=== PATIENT | male | born 1965 | race African-American/Black ===

== ENCOUNTER 2019-03-23 06:36 | Day surgery (SDC) | payer OTHER ==
[2019-03-19 15:42] VITALS: BMI 29.9
[2019-03-23] MEDS ORDERED: HEPARIN NA (PORCINE) 5,000 UNITS/ML 1ML VIAL SQ ONE (07:28)
[2019-03-23] MEDS ORDERED: CEFAZOLIN 2 GM/D5W 2 GM/50 ML ML IVPB ONE (07:28)
[2019-03-23] MEDS ORDERED: ceFAZolin SODIUM 1 GM VIAL ONE (07:50)
[2019-03-23] MEDS ORDERED: BUPIVACAINE HCL/PF 0.25% (2.5MG/ML) 10 ML VIAL ONE (07:54)
[2019-03-23] MEDS ORDERED: HEPARIN NA (PORCINE) 5,000 UNITS/ML 1ML VIAL ONE (07:55)
[2019-03-23] MEDS ORDERED: MIDAZOLAM HCL 2 MG/2 ML SINGLE DOSE VIAL ONE ×2 (07:56)
[2019-03-23] MEDS ORDERED: ROCURONIUM BROMIDE 50 MG/5 ML VIAL ONE ×5 (07:57→12:14)
[2019-03-23] MEDS ORDERED: PROPOFOL 20 ML ONE (07:57)
[2019-03-23] MEDS ORDERED: fentaNYL CITRATE 250 MCG/5 ML VIAL ONE (07:57)
--- NOTE | 2019-03-23 08:13 | HP ---
History & Physical Update - History History: No Change - Physical Physical: No Change - Assessment Assessment: No Change - Plan Plan: No Change (no changes since pre-op visit)
[2019-03-23] MEDS ORDERED: ceFAZolin SODIUM 1 GM VIAL IVPB ONE (08:32)
[2019-03-23] MEDS ORDERED: BUPIVACAINE HCL/PF 0.25% (2.5MG/ML) 10 ML VIAL IJ ONE ×2 (09:24→12:45)
[2019-03-23] MEDS ORDERED: NEOSTIGMINE METHYLSULFATE 0.5 MG/ML - 10 ML MDV ONE (12:40)
[2019-03-23] MEDS ORDERED: DEXAMETHASONE SOD PHOSPHATE 4 MG/1 ML VIAL ONE (12:41)
[2019-03-23] MEDS ORDERED: LIDOCAINE HCL/PF 2% SDV 5ML VIAL ONE (12:41)
[2019-03-23] MEDS ORDERED: GLYCOPYRROLATE 0.2 MG/1 ML VIAL ONE (12:41)
[2019-03-23] MEDS ORDERED: ONDANSETRON 4 MG/2 ML VIAL IVPB PRN (13:16)
[2019-03-23] MEDS ORDERED: ACETAMINOPHEN 500 MG TABLET (FP) PO PRN (13:16)
[2019-03-23] MEDS ORDERED: OXYBUTYNIN CHLORIDE 5 MG TABLET PO PRN (13:16)
[2019-03-23] MEDS ORDERED: ACETAMINOPHEN 1000 MG/100 ML VIAL (NON FORMULARY) IVPB PRN (13:16)
[2019-03-23] MEDS ORDERED: diphenhydrAMINE HCL 50 MG CAPSULE PO PRN (13:16)
[2019-03-23] MEDS ORDERED: ONDANSETRON 4 MG/2 ML VIAL IVPUSH PRN (13:21)
[2019-03-23] MEDS ORDERED: SODIUM CHLORIDE 1,000 ML IV SCH (13:30)
--- NOTE | 2019-03-23 13:40 | OP ---
Operative Note - Note: Operative Date: 03/23/19 Pre-Operative Diagnosis: prostate Cancer Operation: Robotic assisted laparoscopic prostatectomy with pelvic lymph node dissection Post-Operative Diagnosis: Same as Pre-op Surgeon: Jr Tirado Tow Bar Driver: Radha Gaines Anesthesiologist/HAND STAMPER: Sumi Seth MD Anesthesia: General Specimens Removed: prostate. seminal vessicles. pelvic lymph nodes Estimated Blood Loss (mls): 200 Fluid Volume Replaced (mls): 3,000 Operative Report Dictated: Yes
--- NOTE | 2019-03-23 13:44 | SURG ---
Surgery Licensed Tax Consultant Note Licensed Tax Consultant: Radha Gaines PA-C Date of Service: 03/23/19 Diagnosis: prostate cancer Procedure: Robotic assisted laparoscopic prostatectomy with pelvic lymph node dissection I was present for the entirety of the operative procedure. For further detail, please refer to operative report. Visit type - Case Type Case Type: Scheduled - Emergency Emergency Visit: No - New patient This patient is new to me today: Yes Date on this admission: 03/23/19
[2019-03-23] MEDS ORDERED: ACETAMINOPHEN INJECTION 100 ML IVPB ONE (13:59)
[2019-03-23] MEDS: LACTATED RINGERS SOLUTION 1,000 ML IV SCH ×3 (17:22→22:10)
[2019-03-23] MEDS: KETOROLAC TROMETHAMINE 10 MG TABLET PO SCH (18:01)
[2019-03-23] MEDS: DOCUSATE SODIUM 100 MG CAPSULE (FP) PO SCH (21:19)
[2019-03-24] MEDS: KETOROLAC TROMETHAMINE 10 MG TABLET PO SCH ×2 (00:17→06:09)
[2019-03-24 06:45] VITALS: BP 145/90; PULSE 89; TEMP 99.1
[2019-03-24 07:22] LABS: HEMATOCRIT 38.9 % (35.4-49); MCHC 33.4 g/dl (32.0-35.9); MEAN CELL VOLUME 86.7 fl (80-96); MEAN PLT VOLUME 8.8 fl (7.5-11.1); PLATELET COUNT 221 K/MM3 (134-434); RBC 4.49 M/mm3 (4.00-5.60); RDW 14.1 % (11.9-15.9)
--- NOTE | 2019-03-24 07:25 | OP ---
DATE OF OPERATION: 03/23/2019 PREOPERATIVE DIAGNOSIS: Prostate cancer. POSTOPERATIVE DIAGNOSIS: Prostate cancer. PROCEDURE PERFORMED: Robotic assisted laparoscopic radical prostatectomy and bilateral pelvic lymph node dissection, under general anesthesia. SURGEON: Jr Tirado MD DESCRIPTION OF PROCEDURE: The patient was brought to the operating room. A time-out was called. All pressure points were padded. He was prepped and draped in the usual fashion for robotic radical prostatectomy. A Castro catheter was placed in the bladder. Initial pneumoperitoneum was obtained using a Veress needle. Subsequently, an 8-mm port was placed and the robotic camera was used and the abdomen was explored. No bowel injuries were identified. Three 8-mm ports and one 12-mm nursing home assistant administrator port were placed under vision. The robot was brought to the patient's bedside and docked. We identified a few intra-abdominal adhesions, which were taken down sharply. We also identified a left inguinal hernia, which was reduced using blunt dissection. We identified a right sliding hernia, which was reduced using blunt dissection. The bladder was dropped from the anterior attachment to the abdominal wall. The prostate was then defatted and this fat was sent for pathological examination. The endopelvic fascia was opened on both sides. The superficial veins were cauterized, and a DVC stitch of 0 PDS was placed. The anterior bladder neck was then incised and the dissection proceeded towards the posterior bladder neck up to the vas deferens and seminal vesicles. A frozen section from the bladder neck was taken and returned negative for carcinoma. The rectoprostatic fascia was incised and the dissection was carried distally towards the apex. At that point a bilateral nerve-sparing procedure was performed, and dissection was pursued laterally up to the apex. On the right, an intrafascial nerve-sparing procedure was performed. On the left, an intrafascial nerve-sparing procedure was performed. The prostatic vascular pedicles were then controlled bilaterally using Weck clips, bilaterally. The DVC was then divided and the urethra was transected using cold scissors. Following complete urethral transection, the prostate was then mobilized and freed from its posterior attachments and placed in the right upper quadrant. The prostatic basin was then irrigated with saline. The bedside nursing home assistant administrator placed a finger in the rectum and no rectal injury was observed, with no visible blood noted on the surgical clinical reviewer's glove. Bilateral pelvic lymph node dissection was performed in the usual fashion between the external iliac and the obturator nerves bilaterally. The prostate and lymph nodes were then placed together in an Endo Catch bag. At this point, hemostasis was assessed and maintained in the prostatic fossa. The urethrovesical anastomosis was then performed using 2-0 Monocryl sutures on a UR6 needle in a running anastomotic technique. The anastomosis was tested with 60 mL of saline and was watertight. A Imer-Reddy drain was not placed. The 12-mm nursing home assistant administrator port site was closed using the Dagoberto-Viji device with 0 Vicryl. The specimen was extracted after enlarging the umbilical incision. The fascia was then closed using running 0 Vicryl. The skin was closed using 4-0 Monocryl and covered with Dermabond. The patient was extubated in the OR, and taken to the recovery room in good condition. No accidental lacerations were encountered. There were no complications with the procedure. Estimated blood loss was 200 mL. MD CARMEN SEXTON/[id number]
--- NOTE | 2019-03-24 07:33 | SPA.POSTOP ---
- POST-OP NOTE POD #1 s/p Robotic assisted laparoscopic prostatectomy with pelvic lymph node dissection No acute events since surgical procedure per RN notes. Patient resting comfortably. Pain managed well via non-narcotics medication. Hasn't been oob yet. Using his incentive spirometer as directed. Denies n/v/f/c, CP or SOB. Last Vital Signs Temp Pulse Resp BP Pulse Ox 99.1 F 89 20 145/90 99 03/24/19 06:44 03/24/19 06:44 03/24/19 06:44 03/24/19 06:44 03/23/19 20:56 PE Gen: NAD Pulm: CTA bilat Cor: RRR Abd: All surgical ports c/d/i. No hematoma. : Murry to gravity (pink, no clots) LE: SCD's bilat. Soft, non-tender. No edema Problem List - Problems (1) Prostate cancer Assessment/Plan: POD #1 s/p s/p Robotic assisted laparoscopic prostatectomy with pelvic lymph node dissection. Patient had low grade temp 99.1F at 6AM today. OOB & ambulate Switch murry to leg bag --> teach how to use properly (will provide a larger collection bag for night time) Regular Diet Tylenol for fever > 100.4F Cont Incentive Spirometer Will go home w/ Tylenol 1000 mg and Tordol 10 mg Cleared for discharge home from Urology Above plan discussed w/ Dr. Tirado and agrees. Code(s): C61 - MALIGNANT NEOPLASM OF PROSTATE
[2019-03-24 08:25] LABS: CALCIUM 8.1 mg/dL (8.5-10.1); CREATININE 0.9 mg/dL (0.55-1.3); POTASSIUM 3.6 mmol/L (3.5-5.1)
[2019-03-24] MEDS: DOCUSATE SODIUM 100 MG CAPSULE (FP) PO SCH (09:08)
--- NOTE | 2019-03-24 09:15 | PN ---
Progress Note, Physician Chief Complaint: s/p robotic prostatectomy under general anesthesia post op day one History of Present Illness: under general anesthesia - Current Medication List Current Medications: Active Medications Acetaminophen (Tylenol -) 1,000 mg PO Q6H PRN PRN Reason: PAIN 4-6 Last Admin: 03/23/19 14:00 Dose: 1,000 mg Acetaminophen (Ofirmev Injection -) 1,000 mg IVPB Q6H PRN PRN Reason: PAIN 1-3 Stop: 03/24/19 13:15 Diphenhydramine HCl (Benadryl -) 50 mg PO DAILY PRN PRN Reason: FOR ITCHING Docusate Sodium (Colace -) 100 mg PO BID [facility] Last Admin: 03/24/19 09:08 Dose: 100 mg Fentanyl (Sublimaze Injection -) 50 mcg IVPUSH [id number] PRN PRN Reason: PAIN-PACU ORDER X 4 DOSES ONLY Last Admin: 03/23/19 14:10 Dose: 50 mcg Lactated Ringer's (Lactated Ringers Solution) 1,000 mls @ 125 mls/hr IV ASDIR CRISS Last Admin: 03/23/19 22:10 Dose: 125 mls/hr Ketorolac Tromethamine (Toradol) 10 mg PO Q6HPO [facility] Stop: 03/28/19 17:59 Last Admin: 03/24/19 06:09 Dose: 10 mg Ondansetron HCl (Zofran Injection) 4 mg IVPB Q6H PRN PRN Reason: NAUSEA Oxybutynin Chloride (Ditropan -) 5 mg PO BID PRN PRN Reason: spasm - Objective Vital Signs: Vital Signs Temperature 99.1 F 03/24/19 06:44 Pulse Rate 89 03/24/19 06:44 Respiratory Rate 20 03/24/19 06:44 Blood Pressure 145/90 03/24/19 06:44 O2 Sat by Pulse Oximetry (%) 99 03/23/19 20:56 Constitutional: Yes: Well Nourished Cardiovascular: Yes: WNL Respiratory: Yes: WNL Gastrointestinal: Yes: WNL Labs: CBC, BMP 03/24/19 06:30 03/24/19 06:30 Assessment/Plan Mild nausea immediately post op, vomited after drinking surinder carson, now not symptomatic, pain controlled, no further intervention from the dept of anesthesiology
--- NOTE | 2019-03-29 13:16 | PATH ---
Surgical Pathology Report Patient Name: GORDON CRUZ [facility]. Rec. #: [id number] /Age/Gender: 1965 (Age: 53) / M Account: [id number] Location: AMBULATORY SURG Taken: 03/23/2019 Received: 03/23/2019 Reported: 03/29/2019 Physicians: Jr Tirado MD Specimen(s) Received A: BLADDER NECK B: PERIPROSTATIC FAT C: SEMINAL VESICLE AND PROSTATE D: PELVIC LYMPH NODE A E: PELVIC LYMPH NODE B Clinical History Malignant neoplasm of prostate left, Orquidea 3+ 4, BPH Intraoperative Consult Diagnosis Bladder neck, frozen section: Fibromuscular tissue, negative for carcinoma. Ana Lilia Lloyd M.D., 03/23/2019 Final Diagnosis A. BLADDER NECK, EXCISION (FS): BENIGN FIBROMUSCULAR TISSUE. NEGATIVE FOR CARCINOMA. B. PERIPROSTATIC FAT, EXCISION: BENIGN FIBROADIPOSE TISSUE. C. PROSTATE, ROBOTIC ASSISTED LAPAROSCOPIC RADICAL PROSTATECTOMY: PROSTATIC ADENOCARCINOMA, ORQUIDEA SCORE (3+ 4 = 7), GRADE 2. TUMOR VOLUME: APPROXIMATELY 25% OF GLAND VOLUME. TUMOR FOCALITY: MULTIFOCAL, PRESENT BILATERALLY; DOMINANT NODULE AT LEFT ANTERIOR, MEASURES 1 X 0.7 X 0.7 CM. HIGH GRADE PROSTATIC INTRAEPITHELIAL NEOPLASIA (HGPIN) PRESENT. RIGHT AND LEFT SEMINAL VESICLES ARE UNINVOLVED. NO LYMPHOVASCULAR INVASION IDENTIFIED. PERINEURAL INVASION IDENTIFIED. EXTRAPROSTATIC EXTENSION: PRESENT, NON-FOCAL, LEFT POSTEROLATERAL (NEUROVASCULAR BUNDLE). SURGICAL MARGINS ARE NEGATIVE. PATHOLOGIC STAGE STAGE: pT3a pN0. SEE SUMMARY BELOW. D. LYMPH NODE A, DISSECTION: ONE LYMPH NODE, NEGATIVE FOR CARCINOMA (0/1). E. LYMPH NODE B, DISSECTION: ONE LYMPH NODE, NEGATIVE FOR CARCINOMA (0/1). Comments Prostate Carcinoma: Surgical Pathology Cancer Case Summary (Based on AJCC (TNM) 8th Edition) PROSTATE GLAND: Radical Prostatectomy Procedure _X__ Radical prostatectomy Prostate Size Weight: (grams): 67 g Size (centimeters): 5 x 4.2 x 4.2 cm Histologic Type _X__ Acinar adenocarcinoma Histologic Grade Grade Group and [place] Score _X__ Grade group 2 ([place] Score 3+4=7) Intraductal Carcinoma (IDC) _X__Not identified Tumor Quantitation Estimated percentage of prostate involved by tumor: ~25 % Tumor size (dominant nodule, if present): Greatest dimension (millimeters):10 mm Additional dimensions (millimeters):7 x 7 mm Location of dominant nodule: Left anterior Extraprostatic Extension _X__ Present, Non-focal Location of Extraprostatic Extension _X_ Left posterolateral (neurovascular bundle) Urinary Bladder Neck Invasion _X_ Not identified Seminal Vesicle Invasion _X_ Not identified Lymphovascular Invasion _X_ Not identified Perineural Invasion _X_ Present Margins _X_ Uninvolved by invasive carcinoma Treatment Effect _X_ No known presurgical therapy Regional Lymph Nodes Lymph Node Examination Number of Lymph Nodes Involved: 0 Number of Lymph Nodes Examined: 2 Pathologic Stage Classification (pTNM, AJCC 8th Edition) Primary Tumor (pT) _X_ pT3a: Extraprostatic extension (unilateral or bilateral) or microscopic invasion of bladder neck Regional Lymph Nodes Category (pN) _X_ pN0: No positive regional nodes Additional Pathologic Findings _X_ High-grade prostatic intraepithelial neoplasia (PIN) _X_ Inflammation (specify type): Acute and chronic inflammation _X_ Nodular prostatic hyperplasia Electronically Signed Renuka Thompson M.D. Gross Description A. Received fresh labeled "bladder neck," is a 1.8 x 1.4 x 0.3 cm carter-pink portion of cauterized fibromuscular tissue. The specimen is submitted in toto for frozen section. The frozen section residue is entirely submitted in one cassette. B. Received in formalin labeled "periprostatic fat," is a 5.2 x 4.0 x 0.3 cm aggregate of yellow, lobulated adipose tissue. No definitive lymph nodes are lesions are identified. The specimen is entirely submitted in 4 cassettes. C. Received in formalin labeled "prostate and seminal vesicle," is a 67 g radical prostatectomy specimen measuring 5.0 cm from left to right, 4.2 cm from superior to inferior and 4.2 cm from anterior to posterior. The left seminal vesicle measures 2.7 x 1.5 x 0.6 cm and the right seminal vesicle measures 2.5 x 1.5 x 0.6 cm. The vasa deferentia average 2.7 cm in length and 0.4 cm in diameter. The right side of the prostate is inked in red and the left side is inked black. The external surface of the prostate is smooth. Sectioning reveals an ill-defined, firm nodularity measuring 1 x 0.7 x 0.7 cm at the left anterior quadrant. Ill-defined nodularity occupying bilateral posterior quadrants are likewise noted. Partner Manager sections are submitted in 31 cassettes as follows: 1-left apex, coned; 2-right apex, coned; 6-4-[id number] sections of left anterior from apex to base; 2-00-[id number] sections of right anterior from apex to base; 82-81-qegvjerj submitted left posterior from apex to base; 97-90-mskpryqx submitted right posterior from apex to base; 27-shave of left base; 28-shave of right base; 29-left seminal vesicle; 30-right seminal vesicle; 31-right and left vasa deferentia margins. D. Received in formalin labeled "pelvic lymph node A," is an 8.0 x 6.0 x 1.2 cm aggregate of yellow, lobulated adipose tissue. Sectioning reveals a 1.6 x 0.8 x 0.6 cm lymph node. The lymph node is bisected and entirely submitted in one cassette. E. Received in formalin labeled "pelvic lymph node B," is a 6.3 x 5.5 x 2.3 cm aggregate of yellow, lobulated adipose tissue. Sectioning reveals a 2.0 x 0.8 x 0.6 cm lymph node. The lymph node is bisected and entirely submitted in one cassette. 03/23/2019 saudi03/23/2019
== END 2019-03-24 10:40 | disposition home or self-care (01) ==
LOC: JASU-SURG 06:36 → JASUSAT 06:36 → J8W 15:18 → JASUSAT 03-24 10:40
PROVIDERS: ATTEND Urology
PROC: 07BC4ZX Excision of Pelvis Lymphatic, Percutaneous Endoscopic Approach, Diagnostic (ICD-10-PCS; 2019-03-23)
PROC: 0VT04ZZ Resection of Prostate, Percutaneous Endoscopic Approach (ICD-10-PCS; principal; 2019-03-23 08:00)
DX: C61 Malignant neoplasm of prostate (principal)
CPT/HCPCS: 36415; 80048; 85027; 86850; 86900; 86901; 88304-TC; 88305-TC; 88307-TC; 88309-TC; 88331-TC; 94010; 94760; J0131; J1644